=== PATIENT | male | born 1955 | race Caucasian/White ===

== ENCOUNTER 2017-07-02 07:09 | Day surgery (SDC) | payer OTHER ==
[2017-07-02] MEDS ORDERED: LACTATED RINGERS 1,000 ML IV ONE ×2 (07:15→09:15)
[2017-07-02] MEDS ORDERED: BENZOCAINE/TETRACAINE/BUTAMBEN SPRAY 56 GM TOP ONE (08:29)
[2017-07-02] MEDS ORDERED: BUPIVACAINE 0.5%-EPI 1:200000 PF 30 ML VIAL SUBQ ONE (08:45)
[2017-07-02 10:13] VITALS: BP 132/82
--- NOTE | 2017-07-02 11:57 | PROCEDURE REPORT ---
DATE OF PROCEDURE: 07/02/2017 00:00:00 PRE-PROCEDURE DIAGNOSIS: Right neck mass. POST-PROCEDURE DIAGNOSIS: Right neck mass. PROCEDURE: Excision of right neck mass, 2.3 cm. OPERATING SURGEON: Hao Kothari MD. ANESTHESIA: MAC. INDICATION FOR PROCEDURE: The patient is a 62-year-old male who presents with a longstanding right ne ck mass. He had previously underwent fine needle aspiration, which was negative for malignancy. Ultra sound is suggestive of a lymph node. 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 PROCEDURE: After informed consent was obtained, the patient was taken to the procedure room and place d in the supine position. He had EGD done and that is dictated separately. The patient's right neck w as then prepped and draped in the usual sterile fashion. This neck mass was near the end of the jayleen ble. He had a crease below the mass, which was used as the incision site. The skin was injected with 0.25 Marcaine. An incision was then made in the neck crease. This was in order to stay away from the marginal mandibular nerve. The incision was then deepened down to the mass. This mass appeared to be a lipoma. The mass was then excised from the surrounding structures. It was then removed. Hemostasis was obtained using electrocautery. The subcutaneous tissue was closed using 3-0 Vicryl suture. The sk in incision was closed using 4-0 Monocryl subcuticular stitch. Dermabond was then applied. The patien t was then awakened and taken from the procedure room in stable condition. ESTIMATED BLOOD LOSS: Less than 1 mL. COMPLICATIONS: None. CONDITION OF THE PATIENT AT THE END OF THE PROCEDURE: Stable. SPECIMENS: Right neck mass. DRAINS OR PACKS: None. CLASSIFICATION OF THE WOUND: Clean. JOB #: [id number] EXT JOB #:[id number]
== END 2017-07-02 07:10 | disposition home or self-care (01) ==
LOC: SDS 07:09
PROVIDERS: ATTEND Surgery
PROC: 0JB40ZZ Excision of Right Neck Subcutaneous Tissue and Fascia, Open Approach (ICD-10-PCS; 2017-07-02)
PROC: 0DB38ZX Excision of Lower Esophagus, Via Natural or Artificial Opening Endoscopic, Diagnostic (ICD-10-PCS; principal; 2017-07-02 08:15)
PROC: 0DB68ZX Excision of Stomach, Via Natural or Artificial Opening Endoscopic, Diagnostic (ICD-10-PCS; 2017-07-02 08:15)
DX: K22.70 Barrett's esophagus without dysplasia (principal); D17.0 Benign lipomatous neoplasm of skin and subcutaneous tissue of head, face and neck; K44.9 Diaphragmatic hernia without obstruction or gangrene; E11.9 Type 2 diabetes mellitus without complications; G47.30 Sleep apnea, unspecified; E78.00 Pure hypercholesterolemia, unspecified; I10 Essential (primary) hypertension; Z79.4 Long term (current) use of insulin; Z87.891 Personal history of nicotine dependence; Z82.3 Family history of stroke
CPT/HCPCS: 21555; 43239; A9270; J7120

== ENCOUNTER 2018-06-28 10:55 | Outpatient (CLI) | payer MEDICARE, BC | END 2018-06-28 10:56 | disposition home or self-care (01) | LOC: SC 10:55 | PROVIDERS: ATTEND Internal Medicine Pulmonary Disease | DX: G47.33 Obstructive sleep apnea (adult) (pediatric) (principal); G47.31 Primary central sleep apnea | CPT/HCPCS: 99203; G0463; 99212 ==

== ENCOUNTER 2018-09-12 13:22 | Outpatient (CLI) | payer MEDICARE, BC | END 2018-09-12 13:23 | disposition home or self-care (01) | LOC: SC 13:22 | PROVIDERS: ATTEND Internal Medicine Pulmonary Disease | DX: G47.33 Obstructive sleep apnea (adult) (pediatric) (principal) | CPT/HCPCS: 99213; G0463; 99212 ==

== ENCOUNTER 2020-05-15 14:14 | Outpatient (CLI) | payer OTHER, MEDICARE, BC | END 2020-05-15 14:15 | disposition EMS.NT | LOC: EMS 14:14 | PROVIDERS: ATTEND Surgery | DX: R73.09 Other abnormal glucose (principal); R41.0 Disorientation, unspecified ==

== ENCOUNTER 2021-02-21 12:35 | Outpatient (CLI) | payer OTHER, MEDICARE, BC | END 2021-02-21 12:36 | disposition home or self-care (01) | LOC: LAB 12:35 | DX: Z20.822 Contact with and (suspected) exposure to COVID-19 (principal) ==

== ENCOUNTER 2021-05-06 11:38 | Outpatient (CLI) | payer MEDICARE, BC | END 2021-05-06 11:39 | disposition home or self-care (01) | LOC: LAB 11:38 | PROVIDERS: ATTEND Ophthalmology | DX: Z11.52 Encounter for screening for COVID-19 (principal); Z20.822 Contact with and (suspected) exposure to COVID-19 ==

== ENCOUNTER 2021-08-08 09:15 | Emergency (ER) | payer MEDICARE, BC ==
--- NOTE | 2021-08-08 11:56 | ED Physician Documentation ---
PD HPI MALE - Stated complaint Stated Complaint: MALE - Chief complaint Chief Complaint: Abd Pain - History obtained from History obtained from: Patient - History of Present Illness Timing - onset: Enter time (399), Today Timing - duration: Hours Timing - details: Abrupt onset, Still present Associated symptoms: Unable to urinate Similar symptoms before: Has not had sx before Recently seen: Not recently seen - Additional information Additional information: Previously well 66-year-old male who usually gets up about once at night to go to the bathroom got up about 4:00 this morning to go to the bathroom was unable to urinate. He felt that he needed to and he got up to go the bathroom and he repeated this a number of times unable to get any urine out. He became uncomfortable the longer this went on and now he comes to the emergency department unable to move without severe discomfort. He has not had these symptoms previously and he denies any recent history of double dribble or small volume voids bladder pain or reduced stream. He has not taken any new medications. Review of Systems Constitutional: denies: Fever Eyes: denies: Decreased vision Ears: denies: Ear pain Nose: denies: Congestion Throat: denies: Sore throat Cardiac: denies: Chest pain / pressure Respiratory: denies: Dyspnea GI: reports: Abdominal Pain, Nausea : reports: Unable to Void. denies: Dysuria, Frequency Skin: denies: Rash Musculoskeletal: denies: Neck pain, Back pain, Extremity pain PD PAST MEDICAL HISTORY - Past Medical History Cardiovascular: Hypertension, High cholesterol Respiratory: Asthma, Sleep apnea, CPAP use Endocrine/Autoimmune: Type 2 diabetes GI: None, Colon polyps, Other : None HEENT: None Psych: None Musculoskeletal: None Derm: None, Other - Past Surgical History General: Colonoscopy, EGD Ortho: Shoulder arthroplasty - Present Medications Home Medications: Ambulatory Orders Medication Instructions Recorded Confirmed Ascorbic Acid [Vitamin C] 1,000 mg PO DAILY 02/27/16 07/02/17 Calcium Carbonate/Vitamin D3 5,000 intlu PO DAILY 02/27/16 07/02/17 [Calcium 600 + Vit D3 800 Tab] Insulin Glargine,Hum.rec.anlog 20 - 30 unit SQ QPM 02/27/16 07/02/17 [Lantus] Insulin Lispro [Humalog] 0 unit SUBQ TIDWM 02/27/16 07/02/17 Multivitamin [Multivitamins] 1 each PO DAILY 02/27/16 07/02/17 [place]-3/Dha/Epa/Fish Oil [[place] 3 1 each PO DAILY 02/27/16 07/02/17 500 Softgel] Red Yeast Rice 600 mg PO DAILY 02/27/16 07/02/17 Sertraline [Zoloft] 50 mg PO DAILY 02/27/16 07/02/17 Simvastatin 20 mg PO DAILY 02/27/16 07/02/17 lisinopriL [Lisinopril] 10 mg PO BID 02/27/16 07/02/17 Tamsulosin [Flomax] 1 cap PO DAILY #14 cap 08/08/21 - Allergies Allergies/Adverse Reactions: Allergies Allergy/AdvReac Type Severity Reaction Status Date / Time sesame seed Allergy Unknown Verified 08/08/21 09:54 PD ED PE NORMAL - Vitals Vital signs reviewed: Yes (tachy and hypertensive ) - General General: Alert and oriented X 3, No acute distress, Well developed/nourished, Other (expected to find an uncomfortable male but his cath had already been placed. He appears well. ) - HEENT HEENT: Atraumatic, PERRL, EOMI - Neck Neck: Supple, no meningeal sign, No bony TTP - Cardiac Cardiac: RRR, No murmur - Respiratory Respiratory: No respiratory distress, Clear bilaterally - Abdomen Abdomen: Normal bowel sounds, Soft, Non tender, Non distended, No organomegaly - Back Back: No CVA TTP, No spinal TTP - Derm Derm: Normal color, Warm and dry, No rash - Extremities Extremities: No deformity, No edema - Neuro Neuro: Alert and oriented X 3, artificial candy maker 2-12 intact, No motor deficit, No sensory deficit, Normal speech Eye Opening: Spontaneous Motor: Obeys Commands Verbal: Oriented GCS Score: 15 - Psych Psych: Normal mood, Normal affect Results - Vitals Vitals: Vital Signs - 24 hr 08/08/21 08/08/21 08/08/21 09:51 10:19 13:27 Temperature 36.2 C L 36.4 C L Heart Rate 103 H 103 H 93 Respiratory 16 18 20 Rate Blood Pressure 189/96 H 188/92 H 170/98 H O2 Saturation 97 100 98 Oxygen O2 Source Room air - Labs Labs: Laboratory Tests 08/08/21 12:07 Urine Color YELLOW Urine Clarity CLEAR Urine pH 6.0 Ur Specific [place] 1.025 Urine Protein TRACE Urine Glucose (UA) NEGATIVE Urine Ketones 15 H Urine Occult Blood SMALL H Urine Nitrite NEGATIVE Urine Bilirubin NEGATIVE Urine Urobilinogen 0.2 (NORMAL) Ur Leukocyte Esterase NEGATIVE Urine RBC 0-5 Urine WBC 0-3 Ur Squamous Epith Cells NONE SEEN Urine Bacteria Rare Urine Mucus Few Strands Ur Microscopic Review INDICATED Urine Culture Comments NOT INDICATED PD MEDICAL DECISION MAKING - ED course Complexity details: reviewed old records, reviewed results, re-evaluated patient, considered differential, d/w patient ED course: 66-year-old male with a history of hyperlipidemia presents with acute urinary retention. He has not had prior urinary symptoms. He has prompt resolution of his symptoms with insertion of a Matthews catheter draining 850 mils of urine. Urine did not appear infected. I discussed with the patient the need to keep the catheter in place for 10 to 14 days and I have asked the patient to make an appointment with [facility] urology for a voiding trial in 10 to 14 days. I have placed the patient on tamsulosin to start today and he will follow-up with the urologist in 10 to 14 days Departure - Departure Disposition: 01 Home, Self Care Clinical Impression: Urinary retention Condition: Stable Instructions: ED Catheter Care [place], RADHA Retention Urinary Male Follow-Up: Linda Post MD [Primary Care Provider] - Brianna Cardoza MD [Physician No Access] - Prescriptions: Tamsulosin [Flomax] 1 cap PO DAILY #14 cap Discharge Date/Time: 08/08/21 13:28
[2021-08-08 12:14] LABS: BILIRUBIN,URINE NEGATIVE (NEGATIVE); GLUCOSE, URINE (UA) NEGATIVE (NEGATIVE); KETONES,URINE (UA) 15 mg/dL (NEGATIVE); LEUKOCYTE ESTERASE, URINE NEGATIVE (NEGATIVE); NITRITE,URINE NEGATIVE (NEGATIVE); OCCULT BLOOD,URINE SMALL (NEGATIVE); PROTEIN,URINE TRACE mg/dL (NEGATIVE); UROBILINOGEN,URINE 0.2 (NORMAL) E.U./dL (NORMAL)
[2021-08-08 12:17] LABS: CLARITY,URINE CLEAR (CLEAR)
[2021-08-08 12:37] LABS: BACTERIA,URINE Rare /HPF (None Seen); MUCUS,URINE Few Strands; RBC,URINE 0-5 /HPF (0-5); SQUAMOUS EPITHELIAL CELL,UR NONE SEEN (<= Few); WBC,URINE 0-3 /HPF (0-3)
[2021-08-08 13:28] VITALS: BP 170/98
== END 2021-08-08 13:28 | disposition home or self-care (01) ==
LOC: ED 09:15
DX: R33.9 Retention of urine, unspecified (principal); I10 Essential (primary) hypertension; E78.5 Hyperlipidemia, unspecified; E11.9 Type 2 diabetes mellitus without complications; Z79.4 Long term (current) use of insulin
CPT/HCPCS: 51702; 81001; 81003; 87086; 99283

== ENCOUNTER 2021-09-01 09:15 | Outpatient (CLI) | payer MEDICARE, BC | END 2021-09-01 09:16 | disposition EMS.NT | LOC: EMS 09:15 | DX: E11.649 Type 2 diabetes mellitus with hypoglycemia without coma (principal); Z79.4 Long term (current) use of insulin ==

== ENCOUNTER 2021-10-04 18:56 | Outpatient (CLI) | payer MEDICARE, BC | END 2021-10-04 18:57 | disposition EMS.NT | LOC: EMS 18:56 | DX: S50.812A Abrasion of left forearm, initial encounter (principal); S50.811A Abrasion of right forearm, initial encounter; X58.XXXA Exposure to other specified factors, initial encounter; E11.649 Type 2 diabetes mellitus with hypoglycemia without coma ==

== ENCOUNTER 2023-12-02 12:24 | Outpatient (CLI) | payer MEDICARE, BC ==
--- NOTE | 2023-12-03 00:20 | XRAY Report ---
PROCEDURE: Hip w/Pelvis 2-3V LT INDICATIONS: HIP PAIN TECHNIQUE: AP view of the pelvis and lateral views of the left hip. COMPARISON: None. FINDINGS: No acute osseous abnormalities. Mild degenerative changes of the bilateral hips with joint space narr owing and marginal spurring. No suspicious soft tissue calcifications. IMPRESSION: Mild degenerative changes of the bilateral hips. No acute osseous abnormalities. Reviewed by: Jose Raul May MD on 12/03/2023 12:18 AM PST Approved by: Jose Raul May MD on 12/03/2023 12:18 AM PST Station ID: [id number]
== END 2023-12-02 12:25 | disposition home or self-care (01) ==
LOC: DI 12:24
PROVIDERS: ATTEND Internal Medicine
DX: M16.0 Bilateral primary osteoarthritis of hip (principal)

== ENCOUNTER 2025-10-04 00:55 | Observation (INO) ==
[2025-10-04] MEDS ORDERED: DEXTROSE 50% ABBOJECT 25 GM/50 ML SYRINGE ONE (01:04)
[2025-10-04] MEDS: DEXTROSE 50% ABBOJECT 25 GM/50 ML SYRINGE IVP STA (01:05)
--- NOTE | 2025-10-04 01:10 | ED Physician Documentation ---
History of Present Illness Stated complaint Stated Complaint: LOW BLOOD SUGAR Chief complaint Chief Complaint: General History obtained from History obtained from: Patient Additonal information Additional information: 70yM with pmh dm2 on insulin, thyroid disease, p/w hypoglycemia after family found him on the floor. he reported sliding to floor from recliner after not feeling well then had episode of nbnb n/v in the field with possible aspiration per ems. glucose on scene was 21, improving to the 90s s/p 250cc D10. also received 4mg iv zofran en route. Meds/Allgy Home Medications Ambulatory Orders Medication Instructions Recorded Confirmed Red Yeast Rice 600 mg PO DAILY 02/27/16 ascorbic acid (vitamin C) 1,000 mg 1,000 mg PO DAILY 0 02/27/16 10/13/21 chewable tablet calcium 600 mg (as 5,000 intlu PO DAILY 6 10/13/21 carbonate)-vitamin D3 20 mcg (800 unit) tablet multivitamin 1 ea PO DAILY 02/27/1610/13 omega 2-jkr-ccv-fish oil 500 mg 1 ea PO DAILY 02/27/16 10/13/21 (200mg-300mg)-1,000 mg capsule sertraline 50 mg tablet 50 mg PO DAILY 02/27/1609/29 simvastatin 20 mg tablet 20 mg PO DAILY 02/27/1609/29 insulin degludec 100 unit/mL (3 32 - 38 unit subcut DA SHANIA 10/13/21 10/13/21 mL) subcutaneous pen (Tresiba FlexTouch U-100 insulin) insulin lispro 100 unit/mL 5 unit subcut TIDWM 1 10/13/21 subcutaneous pen (Humalog KwikPen (U-100) Insulin) latanoprost (PF) 0.005 % eye drops 7.5 ml LEFTEYE JESÚS Y 10/13/21 10/13/21 levothyroxine 25 mcg capsule 25 mcg PO DAILY 10/13/21 10/13/21 losartan 25 mg tablet 12.5 mg PO DAILY 10/13/21 tamsulosin 0.4 mg capsule 0.4 mg PO DAILY 10/13/21 Allergies Allergies Allergy/AdvReac Type Severity Reaction Status Date / Time sesame seed Allergy Unknown Verified 10/04/25 01:15 [facility] Active Problems All Active Problems (Updated 10/04/25 @ 02:00 by Krys Sherman MD) Leukocytosis (Acute) Vomiting (Acute) Hypoglycemia (Acute) Hypoglycemia (Acute) Onychia (Acute) Skin avulsion (Acute) Medical History Medical History (Updated 10/04/25 @ 02:00 by Krys Sherman MD) Diabetes Family History Family History (Updated 10/04/25 @ 01:36 by Nikki Toledo RN) Other Diabetes Social History Social History (Updated 09/15/25 @ 15:03 by Tianna Brush, ORE SAMPLER, ENP) Smoking Status: Unknown if ever smoked If you are a former smoker, when did you quit? (Date/Year): 30 yrs ago Do you dip or chew tobacco?: No Do you feel safe in your home environment?: Yes History of physical, verbal, emotional, or financial abuse?: No Are you sexually active?: No Exam Exam Vital Signs: Vital Signs x48h Temp Pulse Resp BP Pulse Ox 10/04/25 01:16 69 16 122/90 96 10/04/25 01:07 36.0 C L 81 14 122/90 96 Constitutional normal general appearance, no apparent distress and average body habitus vomit on face HENMT normocephalic, head/scalp atraumatic and oropharynx normal Eyes PERRL and EOMs intact bilaterally Neck/C-Spine visual inspection normal Chest inspection of chest normal and palpation of chest normal Respiratory breath sounds equal bilaterally, normal respiratory effort and clear to auscultation bilaterally Cardiovascular normal heart rate noted and regular rhythm noted Gastrointestinal abdomen normal to inspection, abdomen soft to palpation and nontender to palpation Extremities normal to inspection and normal to palpation Neurology GCS 15 Psychiatry oriented x3 Results Vitals Vitals: Vital Signs - 24 hr 10/04/25 01:07 10/04/25 01:16 Temperature 36.0 C L Temperature Source Tympanic Pulse Rate 81 69 Respiratory Rate 14 16 Blood Pressure 122/90 122/90 O2 Saturation 96 96 O2 Source Room air Room air Pain Intensity 0 0 Oxygen O2 Source Room air Labs Labs: Laboratory Tests 10/04/25 10/04/25 01:18 01:31 WBC 14.7 H RBC 4.27 L Hgb 13.2 L Hct 38.6 L MCV 90.4 MCH 30.9 MCHC 34.2 RDW 12.2 Plt Count 203 MPV 9.1 Neut # (Auto) 13.5 H Lymph # (Auto) 0.3 L [place] # (Auto) 0.8 Eos # (Auto) 0.0 Baso # (Auto) 0.0 Absolute Nucleated RBC 0.00 Nucleated RBC % 0.0 VBG pH 7.281 L VBG pCO2 56.3 H VBG pO2 26.1 VBG HCO3 26.8 VBG Total CO2 28.5 VBG O2 Saturation 30.0 L VBG Base Excess -0.2 Sodium 133 L Potassium 3.4 L Chloride 97 L Carbon Dioxide 28 Anion Gap 8.0 BUN 16 Creatinine 0.9 Estimated GFR (MDRD) 83 L Glucose 214 H POC Whole Bld Glucose 172 Calcium 8.5 Total Bilirubin 0.5 AST 26 ALT 20 Alkaline Phosphatase 66 Total Creatine Kinase 160 Total Protein 6.0 L Albumin 3.7 Globulin 2.3 Albumin/Globulin Ratio 1.6 Lipase < 10 L Serum Ketones NEGATIVE PD Medical Decision Making ED course ED course: 70yM p/w hypoglycemia, n/v and weakness tonight. he is unable to give good history or state his insulin regimen. cxr shows no aspiration pneumonitis. repeat glucose after 1 amp d50 is acceptable. leukocytosis with wbc 14.7. mild respiratory acidosis on vbg with ph 7.28. plan to continue to monitor blood glucose overnight. d/w Dr. Vazquez for admission. Discharge Plan Discharge Patient Disposition: 66 [facility] DC/Xfer Condition: Stable Clinical Impression: Hypoglycemia, Vomiting, Leukocytosis Prescriptions: No Action simvastatin 20 MG tablet 20 mg PO DAILY ascorbic acid (vitamin C) 1,000 MG tablet,chewable 1,000 mg PO DAILY multivitamin 1 EACH capsule 1 ea PO DAILY sertraline 50 MG tablet 50 mg PO DAILY omega 2-ord-qvz-fish oil 1 EACH capsule 1 ea PO DAILY calcium carbonate-vitamin D3 1 EACH tablet 5,000 intlu PO DAILY Red Yeast Rice 600 mg PO DAILY tamsulosin 0.4 MG capsule 0.4 mg PO DAILY losartan 25 MG tablet 12.5 mg PO DAILY Patient Comments: TAKE 1/2 TABLET BY MOUTH EVERY DAY insulin lispro [Humalog KwikPen Insulin] 100 UNIT/ML insulin pen 5 unit subcut TIDWM levothyroxine 25 MCG capsule 25 mcg PO DAILY insulin degludec [Tresiba FlexTouch U-100] 100 UNIT/ML insulin pen 32 - 38 unit subcut DAILY latanoprost (PF) 7.5 ML drops 7.5 ml LEFTEYE DAILY Patient Comments: INSTILL 1 DROP IN THE LEFT EYE EVERY NIGHT AT BEDTIME Print Language: Cook Islander
[2025-10-04 01:23] LABS: HCT - HEMATOCRIT 38.6 % (42.0-52.0); HGB - HEMOGLOBIN 13.2 g/dL (14.0-18.0); MEAN PLATELET VOLUME 9.1 fL (7.4-11.4); NRBC ABSOLUTE COUNT (AUTO) 0.00 x10^3/uL; NUCLEATED RED BLOOD CELLS AUTO 0.0 /100WBC; PLT - PLATELET COUNT 203 10^3/uL (130-450); RED CELL DISTRIBUTION WIDTH 12.2 % (12.0-15.0)
[2025-10-04 01:26] LABS: VBG PH 7.281 (7.31-7.41)
[2025-10-04] MEDS: SODIUM CHLORIDE 0.9% 2,000 ML IV ONE (01:26)
[2025-10-04 01:27] LABS: VBG BASE EXCESS -0.2 mmol/L (-2 - +2); VBG PCO2 56.3 mmHg (41-51); VBG PO2 26.1 mmHg (25-47); VBG TOTAL CO2 28.5 mmol/L (24-29)
[2025-10-04] MEDS: ONDANSETRON 4 MG/2 ML VIAL IVP STA (01:28)
--- NOTE | 2025-10-04 01:35 | XRAY Report ---
PROCEDURE: XR Chest 1V INDICATIONS: n/v possible aspiration TECHNIQUE: One view of the chest was acquired. COMPARISON: 04/02/2014 FINDINGS AND IMPRESSION: Low lung volumes. On the single view study, no dense airspace disease or pleural effusion is apparent. Prominent hilar vessels, similar to prior. Heart size is within normal limits. Degenerative osseous changes. Left shoulder calcific tendinopathy Reviewed by: Mikel Gama MD on 10/04/2025 1:31 AM PST Approved by: Mikel Gama MD on 10/04/2025 1:31 AM PST Station ID: [id number]
[2025-10-04 01:38] LABS: ALT ALANINE AMINOTRANSFERASE 20 IU/L (10-60); AST ASPARTATE AMINOTRANSFERASE 26 IU/L (10-42); BUN - BLOOD UREA NITROGEN 16 mg/dL (6-20); CARBON DIOXIDE - CO2 28 mmol/L (21-32); CK- CREATINE KINASE 160 IU/L (30-223); CREATININE 0.9 mg/dL (0.6-1.3); GFR - MDRD 83 (>89)
--- OUTSIDE RECORDS SUMMARY | 2025-10-04 01:38 | EXTERNAL MEDICAL SUMMARY RPT | Continuity of Care Document ---
Author Organization [facility] Address [address] [address] Phone Problems date description facility 2025-09-15 14:16 Other injury of unsp ecified body region, initial encounter [facility] 2025-09-15 14:18 Other injury of unsp ecified body region, initial encounter [facility] 2025-09-15 15:03 Other injury of unsp ecified body region, initial encounter [facility] 2025-09-16 00:01 Other injury of unsp ecified body region, initial encounter [facility] 2025-09-17 11:45 Unspecified open wou nd of right hand, initial encounter [facility] 2025-09-17 11:46 Unspecified open wou nd of right hand, initial encounter [facility] Results/Labs test date facility value unit notes Result panel 1 VBG BASE EXCESS 2025-10-04 01:18 [facility] -0.2 mm ol/l (missing) NUCLEATED RED BLOOD CELLS AUTO 2025-10-04 01:18 [facility] 0.0 /100wbc (missing) BASOPHILS # (AUTO) 2025-10-04 01:18 [facility] 0.0 10 3/ul (missing) EOSINOPHILS # (AUTO) 2025-10-04 01:18 [facility] 0.0 10 3/ul (missing) NRBC ABSOLUTE COUNT (AUTO) 2025-10-04 01:18 [facility] 0 .00 x10 3/ul (missing) LYMPHOCYTES # (AUTO) 2025-10-04 01:18 [facility] 0.3 10 3/ul (missing) MONOCYTES # (AUTO) 2025-10-04 01:18 [facility] 0.8 10 3/ul (missing) RED CELL DISTRIBUTION WIDTH 2025-10-04 01:18 [facility] 12.2 % (missing) HGB - HEMOGLOBIN 2025-10-04 01:[address] [facility] 13.2 g /dl (missing) NEUTROPHILS # (AUTO) 2025-10-04 01:18 [employer] 13.5 10 3/ul (missing) WHITE BLOOD COUNT 2025-10-04 01:18 [employer] [facility] 14.7 x10 3/ul (missing) PLT - PLATELET COUNT 2025-10-[address] [facility] 203 10 3/ul (missing) VBG PO2 2025-10-04 01:[address] [employer] [facility] 26.1 mmhg (missing) VBG HCO3 2025-10-04 01:18 [employer] 26.8 mmol/l (missing) VBG TOTAL CO2 2025-10-04 01:18 [employer] 28.5 mmol /l (missing) VBG OXYGEN SATURATION 2025-10-04 01:18 [employer] 30.0 % (missing) MEAN CORPUSCULAR HEMOGLOBIN 2025-10-04 01:18 [employer] 30.9 pg (missing) [employer] CORPUSCULAR HGB CONC 2025-10-04 01:[address] [facility] [facility] 34 .2 g/dl (missing) HCT - HEMATOCRIT 2025-10-04 01:18 [employer] 38.6 % (missing) RED BLOOD COUNT 2025-10-04 01:18 [employer] 4.27 10 6/ul (missing) VBG PCO2 2025-10-04 01:18 [facility] 56.3 mmhg (missing) VBG PH 2025-10-04 01:18 [employer] 7.281 (missing ) (missing) MEAN PLATELET VOLUME 2025-10-04 01:18 [employer] 9.1 fl (missing) MEAN CORPUSCULAR VOLUME 2025-10-04 01:18 [employer] 90.4 fl (missing) Social History date description facility
[2025-10-04 01:48] LABS: KETONES, SERUM (ACETEST) NEGATIVE (NEGATIVE)
[2025-10-04] MEDS: DEXTROSE 50% ABBOJECT 25 GM/50 ML SYRINGE IVP ONE (02:44)
--- NOTE | 2025-10-04 03:07 | HISTORY & PHYSICAL EXAMINATION ---
Chief Complaint Chief Complaint Chief Complaint: hypoglycemia History of Present Illness History of Present Illness HPI Comment/Other: Mr. Real is a 70yo M with a h/o DM on insulin, hypertension and hypothyroidism. he presented to the ED after being found down by family. He apparently had become unconscious and slid out of his recliner to the floor. His blood sugar was noted to be 20 when EMS arrived. Upon arrival to the ED his blood glucose was 50. His family was at bedside and explained that this has happened in the past, most recently several weeks ago, but they are always able to get his blood glucose back up to normal. Upon evaluation he remains lethargic, he denies feeling unwell. He stated that he eats regularly, but family stated that his diet is not the healthiest. Additionally, when he was found down he had vomited, but he did not recall this. chest xray was negative for findings of aspiration. due to refractory hypoglycemia I will admit to for close monitoring overnight. This visit was performed using telehealth tools, including phone and live-video. patient provided verbal consent to complete this telemedicine encounter. During the time my interview and evaluation, the patient was located at [facility] in the [facility], I was located in [place]. Review of Systems Status of ROS: 10 or more systems reviewed and unremarkable except as noted in history and below PFSH Active Problems All Active Problems (Updated 10/04/25 @ 03:05 by Ines Alfaro MD) Hand abrasion, infected (Acute) Hypertension (Chronic) SIRS (systemic inflammatory response syndrome) (Acute) Leukocytosis (Acute) Vomiting (Acute) Hypoglycemia (Acute) Hypoglycemia (Acute) Onychia (Acute) Skin avulsion (Acute) Medical History Medical History (Updated 10/04/25 @ 03:05 by Ines Alfaro MD) Diabetes Family History Family History (Updated 10/04/25 @ 01:36 by Nikki Toledo RN) Other Diabetes Social History Social History (Updated 09/15/25 @ 15:03 by CHANDRA Alatorre, ENP) Smoking Status: Unknown if ever smoked If you are a former smoker, when did you quit? (Date/Year): 30 yrs ago Do you dip or chew tobacco?: No Do you feel safe in your home environment?: Yes History of physical, verbal, emotional, or financial abuse?: No Are you sexually active?: No POLST Patient has POLST: No Meds/Allgy Home Medications Ambulatory Orders Medication Instructions Recorded Confirmed Red Yeast Rice 600 mg PO DAILY 02/27/16 ascorbic acid (vitamin C) 1,000 mg 1,000 mg PO DAILY 0 02/27/16 10/13/21 chewable tablet calcium 600 mg (as 5,000 intlu PO DAILY 6 10/13/21 carbonate)-vitamin D3 20 mcg (800 unit) tablet multivitamin 1 ea PO DAILY 02/27/1610/13 omega 1-gij-dwl-fish oil 500 mg 1 ea PO DAILY 02/27/16 10/13/21 (200mg-300mg)-1,000 mg capsule sertraline 50 mg tablet 50 mg PO DAILY 02/27/1609/29 simvastatin 20 mg tablet 20 mg PO DAILY 02/27/1609/29 insulin degludec 100 unit/mL (3 32 - 38 unit subcut DA SHANIA 10/13/21 10/13/21 mL) subcutaneous pen (Tresiba FlexTouch U-100 insulin) insulin lispro 100 unit/mL 5 unit subcut TIDWM 1 10/13/21 subcutaneous pen (Humalog KwikPen (U-100) Insulin) latanoprost (PF) 0.005 % eye drops 7.5 ml LEFTEYE JESÚS Y 10/13/21 10/13/21 levothyroxine 25 mcg capsule 25 mcg PO DAILY 10/13/21 10/13/21 losartan 25 mg tablet 12.5 mg PO DAILY 10/13/21 tamsulosin 0.4 mg capsule 0.4 mg PO DAILY 10/13/21 Allergies Allergies Allergy/AdvReac Type Severity Reaction Status Date / Time sesame seed Allergy Unknown Verified 10/04/25 01:15 Exam Exam Vital Signs: Vital Signs x48h Temp Pulse Resp BP Pulse Ox 10/04/25 02:48 72 20 111/59 L 94 10/04/25 02:05 74 16 130/60 96 10/04/25 01:35 74 20 145/71 H 96 10/04/25 01:16 69 16 122/90 96 11/06/25 01:07 36.0 C L 81 14 122/90 96 Examination as recorded is based on patient and staff reported information as well as peripheral observation. Constitutional no apparent distress and limitations noted (altered mental status) HENMT normocephalic and head/scalp atraumatic Eyes PERRL Cardiovascular normal heart rate noted Extremities wound to right index and middle fingers Neurology mother helper II-XII intact and no focal motor deficit noted Psychiatry orientation abnormal (disoriented to time) and cooperative Conclusion/Plan Problem List (1) Hypoglycemia: Plan: refractory, uncertain if patient took additional doses of medication. infection vs poor oral intake also possible etiology -monitor with with blood glucose checks, ACHS adn prn -hypoglycemic protocol in place -will initiate d5w @ 100cc to maintain a blood glucose above 100 -workup for infection -check HBa1c, as medication may require adjustment (2) SIRS (systemic inflammatory response syndrome): Plan: leukocytosis, tachycardia, hypoglcycemia. -no clear source of infeciton -UA pending -chest xray reviewed, no infiltrates noted -afebrile -continue to monitor (3) Diabetes: Plan: home medication reviewed -will hold regimen in the setting of refractory hypoglycemia (4) Hypertension: Plan: home medicaiton reviewed -will resume (5) Hand abrasion, infected: Plan: per family and patient reports: right hand middle and index fingers. bandaged on antibiotics -wound not undress, will have nurse re-evaluate. will consult wound care if appropriate -will continue antibioitc regimen once confirmed Plan Patient will be admitted to the hospitalist service under outpatient-observation status. less than 2 midnights expected for management. Lab Results 10/04/25 01:18 10/04/25 01:18 Core Measures Anticipated LOS I expect patient to be DC'd or transferred within 96 hours.: Yes DVT/VTE - Prophylaxis VTE/DVT Device ordered at admit?: Yes Telemedicine Consult Details Provider Location & Consult Time Telemedicine consultation conducted via videoconferencing?: Yes
[2025-10-04 03:39] LABS: B. PARAPERTUSSIS- RESP PCR PAN NOT DETECTED; B. PERTUSSIS- RESP PCR PANEL NOT DETECTED; C. PNEUMONIAE- RESP PCR PANEL NOT DETECTED; CORONAVIRUS 229E-RESP PCR NOT DETECTED; CORONAVIRUS HKU1-RESP PCR NOT DETECTED; CORONAVIRUS NL63-RESP PCR NOT DETECTED; CORONAVIRUS OC43-RESP PCR NOT DETECTED; HUMAN METAPNEUMOVIRUS NOT DETECTED; INFLUENZA A- RESP PCR PANEL NOT DETECTED; INFLUENZA B - RESP PCR PANEL NOT DETECTED; M. PNEUMONIAE- RESP PCR PANEL NOT DETECTED; PARAINFLUENZA VIRUS 1 NOT DETECTED; PARAINFLUENZA VIRUS 2 NOT DETECTED; PARAINFLUENZA VIRUS 4 NOT DETECTED; RHINOVIRUS/ENTEROVIRUS NOT DETECTED; RSV- RESP PCR PANEL NOT DETECTED; SARS-CoV-2 -RESP PCR PANEL NOT DETECTED
[2025-10-04] MEDS: DEXTROSE 5% 1,000 ML IV SCH (03:48)
[2025-10-04] MEDS ORDERED: ONDANSETRON 4 MG/2 ML VIAL IVP PRN (04:43)
[2025-10-04] MEDS ORDERED: SODIUM CHLORIDE FLUSH 0.9% 10 ML SYRINGE IVP PRN (04:43)
[2025-10-04 05:46] LABS: BUN - BLOOD UREA NITROGEN 15.0 mg/dL (6-20); CARBON DIOXIDE - CO2 25.0 mmol/L (21-32); CREATININE 0.7 mg/dL (0.6-1.3); GFR - MDRD 111.0 (>89)
[2025-10-04] MEDS: LEVOTHYROXINE 25 MCG TABLET PO SCH (07:07)
[2025-10-04 07:44] LABS: GLUCOSE, URINE (UA) NEGATIVE (NEGATIVE); KETONES,URINE (UA) NEGATIVE (NEGATIVE); OCCULT BLOOD,URINE TRACE (NEGATIVE)
[2025-10-04 08:05] LABS: SQUAMOUS EPITHELIAL CELL,UR RARE Squamous (<= Few)
[2025-10-04 08:06] LABS: CASTS, URINE 3-5 Granular Casts /LPF
[2025-10-04] MEDS: SODIUM CHLORIDE FLUSH 0.9% 10 ML SYRINGE IVP SCH (08:36)
[2025-10-04] MEDS: SERTRALINE 50 MG TABLET PO SCH (08:36)
[2025-10-04] MEDS: TAMSULOSIN 0.4 MG CAPSULE PO SCH (08:36)
[2025-10-04] MEDS ORDERED: LOSARTAN 50 MG TABLET PO SCH (09:00)
[2025-10-04 10:36] LABS: ESTIMATED AVERAGE GLUCOSE 154 mg/dL (70-100); HEMOGLOBIN A1c% 7.0 % (4.27-6.07)
--- NOTE | 2025-10-04 11:44 | Discharge Summary ---
"Discharge Summary Admit Date: 10/04/25 Discharge Date: 10/05/25 Discharging Provider: Dr. Reno Bonds Primary Care Provider: Linda Post Code Status: Attempt Resuscitation Discharge Facility Name: Home, self care DIAGNOSES Discharge Diagnoses with Status of Each Condition: Acute metabolic encephalopathy, hypoglycemialikely due to accidental insulin overuse. Presented with a glucose of 20, and altered. Started on D5 drip with resolution of hypoglycemia. His insulin regimen was adjustednow we will continue 20 units of glargine at night, and 8 units with meals. Prescribed glucagon in case of an emergency. Will follow-up with endocrinology and our tobacco prevention health educator in the outpatient setting. Leukocytosisresolving. Likely attributed to above, as well as treatment of cellulitis of fingers after accidental partial amputation of the tip. Continue cephalexin until course is completed. Has follow-up with PCP to reexamine wounds, which appear to be healing appropriately. Diabetic retinopathycontinue home eyedrops. BPHcontinue home finasteride and tamsulosin. Hypertensioncontinue home losartan. HPI History of Present Illness: Malachi Alfaro: Mr. Real is a 70yo M with a h/o DM on insulin, hypertension and hypothyroidism. he presented to the ED after being found down by family. He apparently had become unconscious and slid out of his recliner to the floor. His blood sugar was noted to be 20 when EMS arrived. Upon arrival to the ED his blood glucose was 50. His family was at bedside and explained that this has happened in the past, most recently several weeks ago, but they are always able to get his blood glucose back up to normal. Upon evaluation he remains lethargic, he denies feeling unwell. He stated that he eats regularly, but family stated that his diet is not the healthiest. Additionally, when he was found down he had vomited, but he did not recall this. chest xray was negative for findings of aspiration. due to refractory hypoglycemia I will admit to for close monitoring overnight. This visit was performed using telehealth tools, including phone and live-video. patient provided verbal consent to complete this telemedicine encounter. During the time my interview and evaluation, the patient was located at [facility] in the [facility], I was located in [place]. CONSULTS | PROCEDURES Procedures: Blood cultures x 2, 10/04no growth to date. Chest x-ray10/04no dense airspace or pleural effusion.. HOSPITAL COURSE Hospital Course: Patient is a 70-year-old male with a history of insulin-dependent diabetes mellitus, hypertension, hypothyroidism who presented after being found down by his family. He was hypoglycemic to 20. He does have a continuous glucose monitor which alerted to this fact. He was given D50, and started on a D5 drip with resolution of his hypoglycemia. This was transitioned off, and he was eating and drinking well. It was determined that he was taking 30 units Lantus at night, as well as 30 units Humalog with meals. We have decreased his insulin regimen to 20 units of long-acting at night, and 8 to 10 units with meals. I have also prescribed him glucagon in case of an emergency, and instructed his family at bedside on when to administer this. Dietitian also spent a lot of time with the family, and he will be following up outpatient with the tobacco prevention health educator. He also sees an customs and immigration officer who he should continue to follow-up with. While here, he was noted to have a leukocytosis, which resolved to almost normal on discharge. He had a one-time fever, and blood cultures were drawn. These were negative. He recently had a partial amputation of the tip of his fingers, which is being followed very closely by his primary care provider. He was advised to continue his oral cephalexin on discharge, continue the silver sulfadiazine cream, and maintain his follow-up appointment with his PCP in the next few days. His wound was healing appropriately, did not look like there was active discharge or fluctuance. He was deemed suitable for discharge home with close follow-up with primary care provider, tobacco prevention health educator, and his customs and immigration officer. ALLERGIES Allergies Allergy/AdvReac Type Severity Reaction Status Date / Time sesame seed Allergy Unknown Verified 10/04/25 01:15 MEDICATIONS Ambulatory Orders Medication Instructions Recorded Confirmed Red Yeast Rice 600 mg PO DAILY 02/27/1605/23 ascorbic acid (vitamin C) 1,000 mg 1,000 mg PO DAILY 0 02/27/16 10/04/25 chewable tablet calcium 600 mg (as 5,000 intlu PO DAILY 6 10/04/25 carbonate)-vitamin D3 20 mcg (800 unit) tablet multivitamin 1 ea PO DAILY 02/27/1610/04 omega 4-gbu-zce-fish oil 500 mg 1 ea PO DAILY 02/27/16 10/04/25 (200mg-300mg)-1,000 mg capsule sertraline 50 mg tablet 50 mg PO DAILY 02/27/1605/23 simvastatin 20 mg tablet 20 mg PO QPM 02/27/16 tamsulosin 0.4 mg capsule 0.4 mg PO DAILY 10/13/2105/23 cephalexin 500 mg capsule 500 mg PO QID 10/04/2510/04 dorzolamide 22.3 mg-timolol 6.8 1 drp ophthalmic (eye) BID 10/04/25 10/04/25 mg/mL eye drops finasteride 5 mg tablet 5 mg PO DAILY 10/04/2510/04 glucagon HCl 1 mg solution for 1 mg subcut Q20M PRN hy poglycemia 10/04/25 injection (Glucagon (HCl) #1 ea Emergency Kit) insulin degludec 100 unit/mL (3 20 unit (0.2 mL) subcu t DAILY #15 10/04/25 10/04/25 mL) subcutaneous pen (Tresiba mL FlexTouch U-100 insulin) insulin lispro 100 unit/mL 8 unit (0.08 mL) subcut BID WM #15 10/04/25 10/04/25 subcutaneous pen (Humalog KwikPen mL (U-100) Insulin) latanoprost 0.005 % eye drops 1 drp ophthalmic (eye) Q PM 10/04/25 10/04/25 levothyroxine 25 mcg tablet 25 mcg PO DAILY 10/04/25 1 12/04/24 losartan 50 mg tablet 50 mg PO DAILY 10/04/2505/23 silver sulfadiazine 1 % topical 1 applic topical DAILY 10/04/25 10/04/25 cream PHYSICAL EXAM AT DISCHARGE Vital Signs: Vital Signs x48h Temp Pulse Resp BP Pulse Ox 10/05/25 08:27 98.8 F 67 18 118/62 98 10/05/25 05:00 98.6 F 67 18 104/53 L 96 General Appearance: positive No acute distress and Alert; negative Anxious Eyes Bilateral: positive Normal inspection, PERRL and EOMI ENT: positive ENT inspection nml, Pharynx nml and No signs of dehydration Neck: positive Nml inspection, Thyroid nml and No JVD Respiratory: positive Chest non-tender, No respiratory distress and Breath sounds nml Cardiovascular: positive Regular rate & rhythm and No murmur; negative Tachycardia Peripheral Pulses: positive 2+ Abdomen: positive Non-tender, No organomegaly, Nml bowel sounds and No distention; negative Tenderness or Guarding Back: positive Nml inspection; negative CVA tenderness (R) or CVA tenderness (L) Skin: positive Color nml, No rash and Other (2nd and 3rd right fingers with appropriate grannulation tissue forming at tip; no fluctuance, erythema noted) LABS 10/05/25 04:48 10/05/25 04:48 DIAGNOSTIC IMAGING Diagnostic Imaging Results: Final report reviewed FOLLOW UP Follow Up: Follow-up PCP. Follow-up with life skills educator. Follow-up customs and immigration officer. TIME SPENT Time Spent in Discharge (Minutes): 35 Discharge Plan Discharge Patient Disposition: Home, Self Care Condition: Stable Prescriptions: New glucagon HCl [Glucagon (HCl) Emergency Kit] 1 mg recon soln 1 mg subcut Q20M PRN (Reason: hypoglycemia) Qty: 1 0RF Rx Instructions: until target blood sugar attained Continued simvastatin 20 MG tablet 20 mg PO QPM ascorbic acid (vitamin C) 1,000 MG tablet,chewable 1,000 mg PO DAILY multivitamin 1 EACH capsule 1 ea PO DAILY sertraline 50 MG tablet 50 mg PO DAILY omega 2-jfw-qkq-fish oil 1 EACH capsule 1 ea PO DAILY calcium carbonate-vitamin D3 1 EACH tablet 5,000 intlu PO DAILY Red Yeast Rice 600 mg PO DAILY tamsulosin 0.4 MG capsule 0.4 mg PO DAILY losartan 50 mg tablet 50 mg PO DAILY latanoprost 0.005 % drops 1 drp ophthalmic (eye) QPM silver sulfadiazine 1 % cream 1 applic TOPICAL DAILY levothyroxine 25 mcg tablet 25 mcg PO DAILY cephalexin 500 mg capsule 500 mg PO QID Patient Comments: TAKE 1 CAPSULE BY MOUTH FOUR TIMES DAILY. STARTED 10 DAY COURSE 09/28/25. dorzolamide-timolol 22.3-6.8 mg/mL drops 1 drp ophthalmic (eye) BID finasteride 5 mg tablet 5 mg PO DAILY Changed insulin lispro [Humalog KwikPen Insulin] 100 UNIT/ML insulin pen 8 unit subcut BIDWM Qty: 15 0RF insulin degludec [Tresiba FlexTouch U-100] 100 UNIT/ML insulin pen 20 unit subcut DAILY Qty: 15 0RF Diet: Diabetic Interventions: Discharge Last Done: 10/05/25 09:54 Discharge Checklist - Nursing Last Done: 10/05/25 09:54 Discharge Vital Signs (30 Minutes) Last Done: 10/05/25 09:45 Health Concerns: You are being discharged after an episode of low blood sugar (hypoglycemia) likely caused by too much insulin. You will now use a different insulin regimen. I would like you to cut your long-acting insulin, your Tresiba to 20 units in the evening. I would like you to decrease your short acting insulin, your Humalog to 8-10 units with meals for now. Our tobacco prevention health educator was able to look at how often your blood sugars are going to a dangerously low level, and within the last week this was 7%. With your new weight loss, and your A1c now being 7, you likely require much less insulin than you did before. I would also like you to follow-up with our diabetes educators here. I would also like you to follow-up very closely with your customs and immigration officer. Please continue to keep glucose log you can bring this in to your next appointment. Your fingers look like they are healing appropriately. We were worried about a one time fever and a white count that was high but both these things are resolving. Please continue and complete your course of cephalexin, continue the cream and changing the dresses daily, and please keep your appointment with Dr. Linda Post so he can continue to keep a close eye on this. While you were here, your infection numbers or your white blood cell count were slightly elevated, so I would recommend that you get this rechecked when you see him next to make sure that it is improving. 1. Recognizing Hypoglycemia - Hypoglycemia means your blood sugar is less than 70 mg/dL. - Symptoms include shakiness, sweating, confusion, irritability, dizziness, hunger, or rapid heartbeat. Severe hypoglycemia can cause confusion, loss of consciousness, or seizures. 2. Treating Hypoglycemia - If your blood sugar is less than 70 mg/dL or you have symptoms, eat or drink 15 grams of fast-acting carbohydrates (such as 4 glucose tablets, 4 ounces of juice, or regular soda). - Wait 15 minutes, then recheck your blood sugar. If it is still low, repeat the treatment. - Once your blood sugar returns to normal, eat a snack or meal to prevent it from dropping again. - If you cannot swallow or are unconscious, someone should call for emergency help, like your granddaughter did appropriately this time. 3. Preventing Hypoglycemia - Always check your blood sugar before meals and at bedtime. I'm glad you have a glucose monitoring device in place. - Take insulin exactly as prescribed. Do not skip meals after taking insulin. - Be cautious with physical activity, as it can lower blood sugar. - Carry a source of fast-acting sugar with you at all times. - Inform family or close contacts about how to help you if you have severe hypoglycemia. I have sent the glucagon injection in case of this as well. I think Makayla, our trust advisor, spoke with your grandkids at bedside. 4. Insulin Instructions - Take 20 units of long-acting insulin every morning as directed. - Take 8 units of short-acting insulin with meals. - Rotate injection sites to avoid skin problems. - Never share needles, syringes, or insulin pens. 5. When to Call for Help - Call your healthcare provider if you have frequent low blood sugars, severe symptoms, or if you are unsure how to adjust your insulin. - Seek emergency help if you lose consciousness, have a seizure, or cannot safely treat low blood sugar yourself. 6. Follow-Up - Attend all scheduled follow-up appointments. - Bring your blood sugar records and insulin log to each visit. - Ask about diabetes education resources and consider meeting with a tobacco prevention health educator or dietitian for further support. 7. Supplies - Make sure you have enough insulin, syringes/pens, blood glucose test strips, and a glucose meter before leaving the hospital. Remember: Hypoglycemia can be dangerous but is preventable and treatable with the right steps. Always keep your care team informed about any problems or questions. Thank you for allowing us to take care of you. We're glad you're feeling better. Print Language: Icelandic Patient Instructions: Hypoglycemia (Low Blood Sugar) Stand Alone Forms: PCP List Follow-up Care: Linda Post MD [Primary Care Provider, Internal Medicine] Vitals documented within 30 minutes of discharge?: Yes"
--- NOTE | 2025-10-04 11:54 | PHARMACY PROGRESS NOTE ---
Best Possible Medication History Admit Date and Time: 10/04/25 0159 Home Medications Medication Instructions Recorded Confirmed Type Red Yeast Rice 600 mg PO DAILY 02/27/1605/23 History ascorbic acid (vitamin C) 1,000 mg 1,000 mg PO DAILY 0 02/27/16 10/04/25 History chewable tablet calcium 600 mg (as 5,000 intlu PO DAILY 6 10/04/25 History carbonate)-vitamin D3 20 mcg (800 unit) tablet multivitamin 1 ea PO DAILY 02/27/1610/04 History omega 7-ski-vdu-fish oil 500 mg 1 ea PO DAILY 02/27/16 10/04/25 History (200mg-300mg)-1,000 mg capsule sertraline 50 mg tablet 50 mg PO DAILY 02/27/1605/23 History simvastatin 20 mg tablet 20 mg PO QPM 02/27/16 History insulin degludec 100 unit/mL (3 30 unit subcut DAILY 1 12/13/20 10/04/25 History mL) subcutaneous pen (Tresiba FlexTouch U-100 insulin) insulin lispro 100 unit/mL 4 - 20 unit subcut BIDWM 10/04/25 History subcutaneous pen (Humalog KwikPen (U-100) Insulin) tamsulosin 0.4 mg capsule 0.4 mg PO DAILY 10/13/2105/23 History cephalexin 500 mg capsule 500 mg PO QID 10/04/2510/04 History dorzolamide 22.3 mg-timolol 6.8 1 drp ophthalmic (eye) BID 10/04/25 10/04/25 History mg/mL eye drops finasteride 5 mg tablet 5 mg PO DAILY 10/04/2510/04 History latanoprost 0.005 % eye drops 1 drp ophthalmic (eye) Q PM 10/04/25 10/04/25 History levothyroxine 25 mcg tablet 25 mcg PO DAILY 10/04/25 1 12/04/24 History losartan 50 mg tablet 50 mg PO DAILY 10/04/2505/23 History silver sulfadiazine 1 % topical 1 applic topical DAILY 10/04/25 10/04/25 History cream Processed by: Pharmacy Medications reviewed in ED?: No Medication History completed: Yes Patient Interview: Completed Secondary Source(s): Pharmacy records and Insurance records [facility] Statement: As the person ultimately responsible for medication therapy, providers are able to order a medication from an existing home medication list in [facility] via the "Reconcile Routine" prior to Confirmation of that medication by passport support manager. Such practice is discouraged except when the physician, in their clinical judgment, deems that a medical need exists for a medication without regard to previous use.
[2025-10-04] MEDS ORDERED: LEVOTHYROXINE 25 MCG TABLET PO SCH (12:00)
[2025-10-04] MEDS: INSULIN LISPRO 300 UNIT/3 ML PEN SUBQ ONE (12:13)
[2025-10-04] MEDS: INSULIN LISPRO 300 UNIT/3 ML PEN SUBQ SCH ×3 (12:36→17:06)
[2025-10-04] MEDS: INSULIN LISPRO 300 UNIT/3 ML PEN SUBQ STA (16:15)
[2025-10-04] MEDS: ACETAMINOPHEN 325 MG TABLET PO PRN (16:15)
[2025-10-04] MEDS: INSULIN GLARGINE-YFGN 300 UNIT/3 ML PEN SUBQ SCH (21:04)
[2025-10-04] MEDS: ATORVASTATIN 10 MG TABLET PO SCH (21:05)
[2025-10-04] MEDS: LATANOPROST 0.005% OPHTH DROPS LEFTEYE SCH (21:05)
[2025-10-05 05:22] LABS: HCT - HEMATOCRIT 33.6 % (42.0-52.0); HGB - HEMOGLOBIN 11.6 g/dL (14.0-18.0); MEAN PLATELET VOLUME 9.8 fL (7.4-11.4); PLT - PLATELET COUNT 186.0 10^3/uL (130-450); RED CELL DISTRIBUTION WIDTH 12.5 % (12.0-15.0)
[2025-10-05 05:38] LABS: BUN - BLOOD UREA NITROGEN 24.0 mg/dL (6-20); CARBON DIOXIDE - CO2 27.0 mmol/L (21-32); CREATININE 0.9 mg/dL (0.6-1.3); GFR - MDRD 83.0 (>89)
[2025-10-05 08:28] VITALS: TEMP 98.8; O2SAT 98
[2025-10-05] MEDS: FINASTERIDE 5 MG TABLET PO SCH (08:36)
[2025-10-05 09:54] VITALS: BP 115/61
== END 2025-10-05 09:55 | disposition home or self-care (01) ==
LOC: MS3 00:55 → ED 00:55 → MS3 02:54
PROVIDERS: ADMIT Hospitalist; ATTEND Hospitalist